=== PATIENT | male | born 1980 | race American Indian/Alaskan Native ===

== ENCOUNTER 2021-08-06 09:44 | Emergency (ER) | payer SELFPAY ==
--- NOTE | 2021-08-06 14:56 | XRay Report ---
LUMBAR SPINE 3 VIEWS INDICATION: Back pain. COMPARISON: No relevant prior imaging study available. FINDINGS: VERTEBRAE: No acute fracture. Normal alignment. DISC SPACES: No significant abnormality. FACET JOINTS: No significant abnormality. SOFT TISSUES: No significant abnormality. ADDITIONAL FINDINGS: No additional significant findings. IMPRESSION: 1. No acute findings. Signer Name: José Manuel Andrews MD Signed: 08/06/2021 2:51 PM Workstation Name: [id number]
--- NOTE | 2021-08-06 15:08 | Emergency Department Report ---
ED Back Pain/Injury HPI - General Chief Complaint: Back Pain/Injury Stated Complaint: LOWER BACK PAIN Source: patient Limitations: No Limitations - History of Present Illness Initial Comments: 41-year-old male presenting to the ED with chronic back pain 1 year. Patient states noticed that last week pain has worsened. Patient is alert and oriented x4 and. Patient is ambulatory. Patient denies any trauma, unexplained weight loss any IV drug use. Denies any loss of bowel or bladder. Patient states only medical history is seizure. States the pain is better after taking Tylenol arthritis. He states that he has never had any imaging done of back. States that work require heavy lifting . No acute distress noted .no ill appearance noted MD Complaint: back pain Onset/Timin -: week(s) Similar Symptoms Previously: No Radiation: none Severity scale (0 -10): 4 Consistency: intermittent Improves With: none Worsens With: none Associated Symptoms: denies other symptoms - Related Data Previous Rx's Medication Instructions Recorded Last Taken Type methOCARBAMOL [Robaxin TAB] 500 mg PO Q6H PRN 15 Days #30 tab 08/06/21 Unknown Rx Allergies Allergy/AdvReac Type Severity Reaction Status Date / Time No Known Allergies Allergy Unverified 08/06/21 10:22 ED Review of Systems ROS: Stated complaint: LOWER BACK PAIN Other details as noted in HPI Constitutional: denies: chills, fever Eyes: denies: eye pain, eye discharge, vision change ENT: denies: ear pain, throat pain Respiratory: denies: cough, shortness of breath, wheezing Cardiovascular: denies: chest pain, palpitations Endocrine: no symptoms reported Gastrointestinal: denies: abdominal pain, nausea, diarrhea Genitourinary: denies: urgency, dysuria Musculoskeletal: back pain. denies: joint swelling, arthralgia Skin: denies: rash, lesions Neurological: denies: headache, weakness, paresthesias Psychiatric: denies: anxiety, depression Hematological/Lymphatic: denies: easy bleeding, easy bruising ED Past Medical Hx - Medications Home Medications: Home Medications Medication Instructions Recorded Confirmed Last Taken Type methOCARBAMOL [Robaxin TAB] 500 mg PO Q6H PRN 15 Days #30 tab 08/06/21 Unknown Rx ED Physical Exam - General Limitations: No Limitations General appearance: alert, in no apparent distress - Head Head exam: Present: atraumatic, normocephalic - Eye Eye exam: Present: normal appearance - ENT ENT exam: Present: mucous membranes moist - Neck Neck exam: Present: normal inspection - Respiratory Respiratory exam: Present: normal lung sounds bilaterally. Absent: respiratory distress - Cardiovascular Cardiovascular Exam: Present: regular rate, normal rhythm. Absent: systolic murmur, diastolic murmur, rubs, gallop - GI/Abdominal GI/Abdominal exam: Present: soft, normal bowel sounds - Rectal Rectal exam: Present: deferred - Extremities Exam Extremities exam: Present: normal inspection - Back Exam Back exam: Present: normal inspection. Absent: full ROM, tenderness, CVA tenderness (R), CVA tenderness (L), paraspinal tenderness - Neurological Exam Neurological exam: Present: alert, oriented X3 - Psychiatric Psychiatric exam: Present: normal affect, normal mood - Skin Skin exam: Present: warm, dry, intact, normal color. Absent: rash ED Course Vital Signs 08/06/21 08/06/21 10:23 15:23 Temperature 98.2 F 98.1 F Pulse Rate 78 80 Respiratory 15 16 Rate Blood Pressure 145/97 166/99 O2 Sat by Pulse 100 100 Oximetry ED Medical Decision Making - Radiology Data Radiology results: report reviewed, image reviewed [facility] [address] [place] [address] XRay Report Signed Patient: NATHANAEL KEN MR#: [id number] 0 : 1980 Acct:[id number] Age/Sex: 41 / M ADM Date: 08/06/21 Loc: ED Attending Dr: Ordering Physician: ROSALINDA SCHULZ Date of Service: 08/06/21 Procedure(s): XR spine lumbosacral 2-3V Accession Number(s): [id number] cc: ROSALINDA SCHULZ Fluoro Time In Minutes: LUMBAR SPINE 3 VIEWS INDICATION: Back pain. COMPARISON: No relevant prior imaging study available. FINDINGS: VERTEBRAE: No acute fracture. Normal alignment. DISC SPACES: No significant abnormality. FACET JOINTS: No significant abnormality. SOFT TISSUES: No significant abnormality. ADDITIONAL FINDINGS: No additional significant findings. IMPRESSION: 1. No acute findings. Signer Name: José Manuel Andrews MD Signed: 08/06/2021 2:51 PM Workstation Name: [email or web address] Transcribed By: [email or web address] Dictated By: José Manuel Andrews MD Electronically Authenticated By: José Manuel Andrews MD Signed Date/Time: 08/06/21 2582 - Medical Decision Making 41-year-old male presenting to the ED with chronic back pain 1 year. Patient states noticed that last week pain has worsened. Patient is alert and oriented x4 and. Patient is ambulatory. Patient denies any trauma, unexplained weight loss any IV drug use. Denies any loss of bowel or bladder. Patient states only medical history is seizure. States the pain is better after taking Tylenol arthritis. He states that he has never had any imaging done of back. States that work require heavy lifting . No acute distress noted .no ill appearance noted The patient is now resting comfortably and feels better is alert talkative interactive in no acute distress. The repeat examination is unremarkable and benign . The patient is neurologically intact and ambulatory in the ED the patient has no fever no bowel or bladder incontinence no saddle elevations and is otherwise alert and well-appearing. The history and physical exam examination and diagnostic do not suggest presence of acute spinal epidural bleed, cauda equina syndrome, abdominal aortic aneurysm, dissection or other process requiring further testing, treatment or consultation in emergency department. Vital signs stable. The patient condition is stable and appropriate for discharge. Patient will pursue further outpatient evaluation with the primary care physician or other physician has indicated in the discharge instruction. - Differential Diagnosis Chronic lumbar spine, muscle strain ,arthralgia Critical care attestation.: If time is entered above; I have spent that time in minutes in the direct care of this critically ill patient, excluding procedure time. ED Disposition Clinical Impression: Back pain Qualifiers: Back pain location: low back pain Chronicity: unspecified Back pain laterality: bilateral Sciatica presence: without sciatica Qualified Code(s): M54.50 - Low back pain, unspecified Disposition: HOME / SELF CARE / HOMELESS Is pt being admited?: No Does the pt Need Aspirin: No Condition: Stable Instructions: Chronic Back Pain, [id number] Additional Instructions: Follow-up with primary care doctor as needed Take medication as needed for pain Take [id number] Tylenol arthritis as needed Return to ED for worsening symptoms Prescriptions: methOCARBAMOL [Robaxin TAB] 500 mg PO Q6H PRN 15 Days #30 tab PRN Reason: Pain, Mild (1-3) Referrals: SUDHIR FERRELL MD [Staff Physician] - 3-5 Days
[2021-08-06 15:24] VITALS: BP 166/99
== END 2021-08-06 15:25 | disposition home or self-care (01) ==
LOC: ED 09:44
DX: M54.9 Dorsalgia, unspecified (principal)
CPT/HCPCS: 72100; 99283